=== PATIENT | female | born 1970 | race Caucasian/White ===

== ENCOUNTER → 2017-12-05 | Outpatient (CLI) | payer BC ==
[~2017-12-05] MED LIST: GADOBENATE DIMEGLUMINE 1 ML IV ONE; SODIUM CHLORIDE 0.9% 50ML 50 ML ONE
--- NOTE | 2017-12-05 17:01 | Diagnostic Imaging Report ---
PROCEDURE: MRI ABDOMEN WOW TECHNIQUE: Multisequence multiplanar MR images of the abdomen were obtained without and with contrast. 17 cc of MultiHance was administered intravenously. COMPARISON: None. INDICATIONS: Liver lesion, epigastric pain FINDINGS: LIVER: Hepatic segment II 1 x 2.3 cm, segment VIA/VIII 3.7 x 2.7 cm, and segment VII 3 x 3.8 cm lesions are T2 hyperintense and show peripheral interrupted nodular enhancement with mostly complete filling on delayed phase in the segment II and VIA/VIII lesions, and with incomplete filling of the segment VII lesion. No intralesional intravoxel fat or macroscopic fat. Normal liver contour. No signal loss on [id number] images to suggest steatosis. BILIARY: No ductal dilatation or filling defect. No filling defects in the gallbladder. PANCREAS: No mass or ductal dilatation. SPLEEN: No splenomegaly. ADRENALS: No nodules. KIDNEYS: No hydronephrosis or mass in the imaged portion of the kidneys. PERITONEUM / RETROPERITONEUM: No upper abdominal free fluid. LYMPH NODES: No upper abdominal lymphadenopathy. VESSELS: Unremarkable. BONES AND SOFT TISSUES: Unremarkable. IMPRESSION: Three lesions in both hepatic lobes are most compatible with hemangiomas. Dictated by: Dat Sewell M.D. on 12/05/2017 at 17:02 Electronically approved by: Dat Sewell M.D. on 12/05/2017 at 17:02
== END ==
LOC: MRI 14:55
PROVIDERS: ATTEND Internal Medicine Gastroenterology
DX: K76.9 Liver disease, unspecified (principal); R10.13 Epigastric pain; E66.9 Obesity, unspecified; Z71.3 Dietary counseling and surveillance; Z80.0 Family history of malignant neoplasm of digestive organs; F17.200 Nicotine dependence, unspecified, uncomplicated
CPT/HCPCS: 74183